=== PATIENT | female | born 1965 | race Caucasian/White ===

== ENCOUNTER 2020-11-06 13:07 | Emergency (ER) | payer BC ==
[~2020-11-06] VITALS: Ht 154.9 cm; Wt 92.1 kg
[2020-11-06] MEDS ORDERED: ACETAMINOPHEN WITH CODEINE 1 TAB TAB PO SCH (14:00)
[2020-11-06] MEDS ORDERED: ACETAMINOPHEN WITH CODEINE 1 TAB TAB ONE (14:06)
[2020-11-06] MEDS ORDERED: GUAIFENESIN-DM 200/20 MG 10 ML ONE (14:14)
[2020-11-06] MEDS ORDERED: GUAIFENESIN-DM 200/20 MG 10 ML PO SCH (14:30)
[2020-11-06] MEDS ORDERED: D-ME1POW16 PO (15:17)
[2020-11-06 15:38] VITALS: BP 128/67
== END 2020-11-06 15:38 | disposition home or self-care (01) ==
LOC: EDH 13:07
DX: J06.9 Acute upper respiratory infection, unspecified (principal); Z20.822 Contact with and (suspected) exposure to COVID-19; M19.90 Unspecified osteoarthritis, unspecified site; Z88.5 Allergy status to narcotic agent; Z90.710 Acquired absence of both cervix and uterus
CPT/HCPCS: 71045; 87635; 87804 ×2; 87880; 99284; C9803